=== PATIENT | male | born 1945 | race American Indian/Alaskan Native ===

== ENCOUNTER 2018-01-04 13:01 | Day surgery (SDC) | payer MEDICARE ==
[~2018-01-04 13:01] MED LIST: ANCEF/STERILE WATER 2 GM/20 ML 2 GM/20 ML SYRINGE IV NR
[2018-01-04] MEDS ORDERED: XYLOCAINE 1% 20 mL ONE (14:23)
[2018-01-04] MEDS ORDERED: MARCAINE 0.25% INFILTRATI ONE (14:24)
[2018-01-04] MEDS ORDERED: DILAUDID IV PRN (14:44)
[2018-01-04] MEDS ORDERED: ZOFRAN IV PRN (14:44)
[2018-01-04] MEDS ORDERED: NARCAN 0.4 MG/1 ML IV PRN (14:44)
[2018-01-04] MEDS ORDERED: DEMEROL IV PRN (14:44)
[2018-01-04] MEDS ORDERED: LACTATED RINGERS 1,000 ML IV SCH (15:00)
[2018-01-04] MEDS ORDERED: PROVENTIL IH NR (15:15)
[2018-01-04] MEDS ORDERED: ZOFRAN ONE (15:55)
[2018-01-04] MEDS ORDERED: XYLOCAINE MPF 2% ONE (15:55)
[2018-01-04] MEDS ORDERED: SUBLIMAZE ONE ×3 (15:55→17:28)
[2018-01-04] MEDS ORDERED: DIPRIVAN 10 MG/ML IV ONE (15:56)
--- NOTE | 2018-01-04 15:56 | Post Operative Note ---
Date of procedure: 01/04/18 Pre-op diagnosis: bilat hydrocles Post-op diagnosis: same Findings: bilat hydrocelectomies Procedure: see above Anesthesia: GETA Surgeon: DELLA AHUJA Estimated blood loss: minimal Pathology: list (sac) Specimen disposition: to lab Condition: stable Disposition: PACU
--- NOTE | 2018-01-04 15:58 | Discharge Summary ---
Short Stay Discharge Plan Activity: other (no strainin g) Weight Bearing Status: Partial Weight Bearing Diet: low fat, low salt Wound: change dressing, other (had drains .. change daily or prn ) Special Instructions: other (give 4 x 4 for dresssing changes ) Durable Medical Equipment Needed Upon Discharge: other (ice packs in RR and x 24 hrs ) Follow up with: CROW WALDRON MD [Primary Care Provider] - 7 Days DELLA AHUJA MD [Staff Physician] - 01/09/18
[2018-01-04] MEDS ORDERED: ANCEF/STERILE WATER 2 GM/20 ML 2 GM/20 ML SYRINGE IV NR (16:00)
[2018-01-04] MEDS ORDERED: ePHEDrine 50 MG/5 ML-0.9% NACL IV ONE (16:26)
--- NOTE | 2018-01-04 16:56 | Anesthesia Day of Surgery ---
Anesthesia Day of Surgery - Day of Surgery Patient Examined: Yes Patient H&P Reviewed: Yes Patient is NPO: Yes
--- NOTE | 2018-01-04 16:56 | Anesthesia Consultation ---
Anesthesia Consult and Med Hx Date of service: 01/04/18 - Airway Anesthetic Teeth Evaluation: Poor ROM Head & Neck: Adequate Mental/Hyoid Distance: Adequate Mallampati Class: Class II Intubation Access Assessment: Probably Good - Pulmonary Exam CTA: No (mild wheezing in left upper lung jacome) - Cardiac Exam Cardiac Exam: No Murmur - Pre-Operative Health Status ASA Pre-Surgery Classification: ASA2 Proposed Anesthetic Plan: General - Pre-Anesthesia Comment Pre-Anesthesia Comments: Patient uses walker to ambulate - Pulmonary Hx Smoking: Yes (STOPPED X 30 YRS) Hx Sleep Apnea: No (SEAN PRE SCREEN HIGH RISK) - Cardiovascular System Hx Hypertension: Yes (X 6 YRS) Hx Angina: No Hx Pacemaker: No - Other Systems Hx Cancer: No
[2018-01-04] MEDS ORDERED: NACL 0.9% IR ONE (17:14)
--- NOTE | 2018-01-04 18:30 | Operative Report ---
PREOPERATIVE DIAGNOSES: Bilateral very large hydrocele. POSTOPERATIVE DIAGNOSIS: Bilateral very large hydrocele. PROCEDURE: Bilateral hydrocelectomy. SURGEON: Jake Landon MD ANESTHESIA: General. FINDINGS: The gentleman with increasing large scrotum with pain and discomfort. He has a very large hydrocele, now presents for repair. DESCRIPTION OF PROCEDURE: The patient brought to the operating room and placed on the operating table. Following induction of anesthesia, placed in supine position, prepped and draped in usual sterile fashion. An oblique incision made over the right hemiscrotum, carried through skin and superficial fascial layers to the tunica vaginalis. This was cleaned. It was opened, approximately over 100 mL on each side, was taken out, which was clear fluid. The tunica vaginalis was trimmed and oversewn with 3-0 chromic. A 0.5 inch [place] drain was placed in each hemiscrotum. The vaginalis was closed with 3-0 chromic skin with 2-0 chromic in an interrupted fashion. A symmetrical incision was made on the left side and similar dissection was carried out. Tunica vaginalis was trimmed, oversewn with 3-0 chromic. Superficial fascia again was closed with 3-0 chromic and skin with 2-0 chromic in interrupted fashion. The patient tolerated the procedure well. Minimal blood loss [place] was placed in each side was brought to recovery room with a pressure dressing in stable condition. JOB# [id number] TIAGO/MURALI
--- NOTE | 2018-01-04 20:54 | Post Anesthesia Evaluation ---
- Post Anesthesia Evaluation Patient Participated: Yes Airway Patent: Yes Stable Respiratory Function: Yes Nausea/Vomiting: No Temp > 96.8F: Yes Pain Manageable: Yes Adequeate Hydration: Yes Anesthesia Complications: No Block Receding Appropriately: Not Applicable Patient on Ventilator: No
[2018-01-04 21:47] VITALS: BP 126/58
== END 2018-01-04 19:55 | disposition home or self-care (01) ==
LOC: OR 13:01
PROVIDERS: ATTEND Urology
DX: N43.3 Hydrocele, unspecified (principal); I10 Essential (primary) hypertension; Z87.891 Personal history of nicotine dependence
CPT/HCPCS: 36415; 55041; 84132; 88302; 93005; 93010; A4217; J0690; J1170; J2405; J2704; J3010; J7120

== ENCOUNTER 2018-08-28 08:40 | Outpatient (CLI) | payer MEDICARE ==
--- NOTE | 2018-08-28 15:35 | Nuclear Medicine Report ---
BONE SCAN: History: Prostate cancer. After injection of isotope, gamma camera imaging of the bony system was done. Normal uptake in the urinary system is seen. There are 4 focal areas of uptake in the lumbar spine corresponding to the L1-2 and L5-S1 facet joints. This presumably represents facet arthropathy uptake although no recent corresponding radiographic comparison is available. There is focal uptake in the right anterior first rib which is slightly suspicious. Mild degenerative uptake in the shoulders and left foot. Contamination in the left side of the perineum is noted. IMPRESSION: Focal areas of abnormal uptake in the lumbar spine which could be secondary to facet arthropathy or surgical changes. Focal area of uptake in the right anterior first rib which is of uncertain significance. Consider radiographic correlation of these 2 areas.
== END 2018-08-28 08:41 | disposition home or self-care (01) ==
LOC: NM 08:40
PROVIDERS: ATTEND Urology
DX: C61 Malignant neoplasm of prostate (principal); I10 Essential (primary) hypertension; E78.00 Pure hypercholesterolemia, unspecified; K21.9 Gastro-esophageal reflux disease without esophagitis; M19.90 Unspecified osteoarthritis, unspecified site; Z87.891 Personal history of nicotine dependence
CPT/HCPCS: 78306; A9503